=== PATIENT | female | born 1970 | race Hispanic/Latino ===

== ENCOUNTER 2017-04-08 11:59 | Day surgery (SDC) | payer BC ==
[~2017-04-08] VITALS: Ht 152.4 cm; Wt 52.6 kg
[~2017-04-08 11:59] MED LIST: APRISO0.375 GM PO; BIOTIN MAXI10000 MCG PO; MULTIPLE PO; PRILOSEC40 MG PO; TYLENOL 500MG TAB PO; VITAMIN E400 UNIT PO
[2017-04-08 15:38] VITALS: BP 102/67
== END 2017-04-08 15:45 | disposition home or self-care (01) | DRG 951 ==
LOC: ENDO 11:59 → ORM 17:30
PROVIDERS: ATTEND Internal Medicine Gastroenterology
PROC: 0DBG8ZX Excision of Left Large Intestine, Via Natural or Artificial Opening Endoscopic, Diagnostic (ICD-10-PCS; principal; 2017-04-08)
PROC: 0DBF8ZX Excision of Right Large Intestine, Via Natural or Artificial Opening Endoscopic, Diagnostic (ICD-10-PCS; 2017-04-08)
DX: Z12.11 Encounter for screening for malignant neoplasm of colon (principal); Q43.9 Congenital malformation of intestine, unspecified; K64.4 Residual hemorrhoidal skin tags; K64.8 Other hemorrhoids; K29.70 Gastritis, unspecified, without bleeding; K44.9 Diaphragmatic hernia without obstruction or gangrene; D18.03 Hemangioma of intra-abdominal structures; K82.4 Cholesterolosis of gallbladder; Z86.010 Personal history of colon polyps; Z80.0 Family history of malignant neoplasm of digestive organs; Z87.19 Personal history of other diseases of the digestive system

== ENCOUNTER 2021-07-28 08:42 | Day surgery (SDC) | payer BC ==
[~2021-07-28] VITALS: Ht 157.5 cm; Wt 57.2 kg
[~2021-07-28 08:42] MED LIST changes: +KP VITAMIN E100 UNIT PO; +VITAMIN B-121000 MC4 PO; +VITAMIN D325 MCG PO
[2021-07-28 11:37] VITALS: BP 108/68
== END 2021-07-28 12:07 | disposition home or self-care (01) | DRG 951 ==
LOC: ENDO 08:42
PROVIDERS: ATTEND Surgery
PROC: 0DJD8ZZ Inspection of Lower Intestinal Tract, Via Natural or Artificial Opening Endoscopic (ICD-10-PCS; principal; 2021-07-28)
DX: Z12.11 Encounter for screening for malignant neoplasm of colon (principal); K21.9 Gastro-esophageal reflux disease without esophagitis; Z80.0 Family history of malignant neoplasm of digestive organs; Z87.11 Personal history of peptic ulcer disease